=== PATIENT | female | born 1965 | race Caucasian/White ===

== ENCOUNTER 2020-05-03 21:03 | Observation (INO) | payer OTHER ==
[2020-05-03 21:13] LABS: Glucose,Whole Blood 573 mg/dL (75-99)
[2020-05-03] MEDS ORDERED: SODIUM CHLORIDE 0.9% 1,000 ML IV STA (21:18)
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
[2020-05-03 21:46] LABS: Basophils # (A) 0.1 k/uL (0-0.2); Basophils % (A) 1 %; Eosinophils # (A) 0.3 k/uL (0-0.7); Eosinophils % (A) 4 %; HGB 14.5 gm/dL (11.4-16.0); Lymphocytes # (A) 1.5 k/uL (1.0-4.8); Lymphocytes % (A) 22 %; MCH 28.7 pg (25.0-35.0); MCHC 31.6 g/dL (31.0-37.0); MCV 90.7 fL (80.0-100.0); Mean Platelet Volume 8.9; Monocytes # (A) 0.3 k/uL (0-1.0); Monocytes % (A) 5 %; Neutrophils # (A) 4.7 k/uL (1.3-7.7); Neutrophils % (A) 68 %; Platelet Count 216 k/uL (150-450); RBC 5.08 m/uL (3.80-5.40); RDW 12.9 % (11.5-15.5)
[2020-05-03 21:56] LABS: ALT 14 U/L (4-34); AST 15 U/L (14-36); African American GFR (CKD) >90 (>60 ml/min/1.73 sqM); Albumin 4.2 g/dL (3.5-5.0); Alcohol <10 mg/dL; Alkaline Phosphatase 137 U/L (38-126); Anion Gap 8 mmol/L; Blood Urea Nitrogen 17 mg/dL (7-17); Calcium 9.7 mg/dL (8.4-10.2); Carbon Dioxide 28 mmol/L (22-30); Chloride 96 mmol/L (98-107); Non-African American GFR(CKD) >90 (>60 ml/min/1.73 sqM); Potassium 4.8 mmol/L (3.5-5.1); Sodium 132 mmol/L (137-145); Total Bilirubin 0.5 mg/dL (0.2-1.3); Total Protein 6.8 g/dL (6.3-8.2)
[2020-05-03 22:03] LABS: Appearance,Urine Clear (Clear); Bilirubin,Urine Negative (Negative); Blood,Urine Negative (Negative); Color,Urine Colorless; Glucose,Urine (UA) 4+ (Negative); Ketones,Urine 1+ (Negative); Leukocyte Esterase,Urine Negative (Negative); Nitrite,Urine Negative (Negative); PH, Urine 7.5 (5.0-8.0); Protein,Urine Negative (Negative); Specific Gravity,Urine 1.035 (1.001-1.035); Urobilinogen,Urine <2.0 mg/dL (<2.0)
[2020-05-03 22:08] LABS: Glucose 568 mg/dL (74-99)
--- NOTE | 2020-05-03 22:08 | XR ---
EXAMINATION TYPE: XR chest 2V DATE OF EXAM: 05/03/2020 COMPARISON: NONE HISTORY: Weakness TECHNIQUE: FINDINGS: Heart and mediastinum are normal. Lungs are clear. Diaphragm is normal. Bony thorax is inta ct. IMPRESSION: Normal chest.
[2020-05-03 22:21] LABS: Amphetamine Screen,Urine Not Detected (NotDetected); Barbiturate Screen,Urine Not Detected (NotDetected); Benzodiazepines Screen,Urine Not Detected (NotDetected); Cocaine Screen,Urine Not Detected (NotDetected); Methadone Screen, Urine Not Detected (NotDetected); Opiate Screen,Urine Not Detected (NotDetected); Oxycodone Screen, Urine Not Detected (NotDetected); Phencyclidine Screen,Urine Not Detected (NotDetected); Tricyclic Antidepressant,Urine Not Detected (NotDetected); Urn Cannabinoid Scrn Not Detected (NotDetected)
--- NOTE | 2020-05-03 22:37 | CT ---
EXAMINATION TYPE: CT brain wo con DATE OF EXAM: 05/03/2020 COMPARISON: None HISTORY: ams CT DLP: 1096.4 mGycm Automated exposure control for dose reduction was used. Ventricles and sulci appear normal. There is no mass effect nor midline shift. There is no sign of in tracranial hemorrhage. The calvarium is intact. IMPRESSION: Negative unenhanced head CT scan.
[2020-05-03] MEDS ORDERED: SODIUM CHLORIDE 0.9% 1,000 ML IV ONE (22:45)
[2020-05-03] MEDS ORDERED: LORazepam 1 MG TAB PO STA (22:51)
[2020-05-03] MEDS ORDERED: INSULIN REGULAR 100 UNIT in SODIUM CHLORIDE 0.9% 100 ML IV SCH (23:00)
[2020-05-03] MEDS: SODIUM CHLORIDE 0.9% 1,000 ML IV SCH (23:15)
[2020-05-04 00:15] LABS: Glucose,Whole Blood 338 mg/dL (75-99)
[2020-05-04 00:17] LABS: African American GFR (CKD) >90 (>60 ml/min/1.73 sqM); Anion Gap 10 mmol/L; Blood Urea Nitrogen 16 mg/dL (7-17); Carbon Dioxide 24 mmol/L (22-30); Chloride 100 mmol/L (98-107); Glucose 385 mg/dL (74-99); Non-African American GFR(CKD) >90 (>60 ml/min/1.73 sqM); Sodium 134 mmol/L (137-145)
[2020-05-04 00:24] LABS: Phosphorus 3.3 mg/dL (2.5-4.5); Potassium 4.3 mmol/L (3.5-5.1)
[2020-05-04 00:57] LABS: Glucose,Whole Blood 249 mg/dL (75-99)
[2020-05-04] MEDS ORDERED: INSULIN REGULAR 100 UNIT in SODIUM CHLORIDE 0.9% 100 ML IV SCH (01:30)
[2020-05-04] MEDS ORDERED: INSULIN DETEMIR (LEVEMIR) 100 UNIT/ML SYR SQ SCH (01:30)
[2020-05-04 02:08] LABS: Glucose,Whole Blood 265 mg/dL (75-99)
[2020-05-04] MEDS: SODIUM CHLORIDE 0.9% 1,000 ML IV SCH ×2 (02:08→16:36)
[2020-05-04 03:01] LABS: Glucose,Whole Blood 166 mg/dL (75-99)
[2020-05-04 05:23] LABS: Glucose,Whole Blood 145 mg/dL (75-99)
[2020-05-04 05:27] LABS: African American GFR (CKD) >90 (>60 ml/min/1.73 sqM); Anion Gap 3 mmol/L; Blood Urea Nitrogen 17 mg/dL (7-17); Carbon Dioxide 29 mmol/L (22-30); Chloride 106 mmol/L (98-107); Glucose 118 mg/dL (74-99); Non-African American GFR(CKD) >90 (>60 ml/min/1.73 sqM); Phosphorus 3.4 mg/dL (2.5-4.5); Potassium 3.9 mmol/L (3.5-5.1); Sodium 138 mmol/L (137-145)
[2020-05-04] MEDS ORDERED: D5-0.45% NACL WITH KCL 20MEQ/L 1,000 ML IV SCH (06:00)
[2020-05-04 07:02] LABS: Glucose,Whole Blood 132 mg/dL (75-99)
[2020-05-04 09:39] LABS: Glucose,Whole Blood 270 mg/dL (75-99)
[2020-05-04 11:10] LABS: Glucose,Whole Blood 298 mg/dL (75-99)
[2020-05-04] MEDS: INSULIN DETEMIR (LEVEMIR) 100 UNIT/ML SYR SQ SCH (11:13)
[2020-05-04] MEDS: INSULIN ASPART (NovoLOG) 100 UNIT/ML VIAL SQ SCH ×5 (11:14→20:42)
[2020-05-04] MEDS ORDERED: ATIVAN PO PRN (12:20)
[2020-05-04] MEDS ORDERED: HYDROcodone/APAP 5-325MG 1 EACH TAB PO PRN (12:21)
[2020-05-04] MEDS: NICOTINE 14MG/24HR PATCH TRANSDERM SCH (13:06)
[2020-05-04 14:00] VITALS: BMI 26.6
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
--- NOTE | 2020-05-04 14:46 | P.CNNES ---
History of Present Illness Consult date: 05/04/20 Requesting physician: Chuck Granados Reason for Consult: Altered mental status History of Present Illness: Patient is a 55-year-old female came to the hospital by ambulance at 9 PM yesterday. Patient states that she lives in [place]. She has been driving for last 1 week in order to go to [place] to see her father, who had a stroke. She wanted to see him. She has been driving for 1 week, staying in the car. Patient wanted to cross the border to go to [place], which she was told is faster as compared to going through [place]. Patient states that she lost her wallet, perhaps left it in a tray in [facility] and threw it out. Patient was not allowed to be entered to [place], and was taken to police station. Her blood sugar was noted to be very high, therefore was transferred to [facility] for further evaluation. Patient denies any focal symptoms any headache. Patient appears to be in a very poor hygienic condition. Patient's vital signs at the scene was blood pressure 154/80, pulse rate 84, saturation 98% and blood sugar 499. Vital signs on arrival was blood pressure 141/69, pulse rate 80 temperature 98.2. CBC, CMP and UA and urine drug screen are negative. Blood alcohol level negative. Acetone negative. CT head negative. EKG shows normal sinus rhythm. Possible left atrial enlargement. Chest x-ray normal. At present patient denies any headache, numbness tingling focal weakness. She has no complaints. She complains of right knee pain after she fell in the shower sometime ago. Patient denies any alcohol use. She smokes 4 cigarettes per day for last 10 years. She lives with her in [place]. She has a son who is in college. Review of Systems As above, otherwise completely unremarkable. Past Medical History Past Medical History: Diabetes Mellitus Additional Past Medical History / Comment(s): insomnia History of Any Multi-Drug Resistant Organisms: None Reported Past Surgical History: No Surgical Hx Reported Past Anesthesia/Blood Transfusion Reactions: No Reported Reaction Additional Past Anesthesia/Blood Transfusion Reaction / Comment(s): unknown Past Psychological History: Anxiety, Bipolar Smoking Status: Current every day smoker Past Alcohol Use History: None Reported Past Drug Use History: None Reported - Past Family History Son(s) Additional Family Medical History / Comment(s): pt refusing to give info on son Medications and Allergies Home Medications Medication Instructions Recorded Confirmed Type Insulin Aspart [NovoLOG Flexpen] 5 units SQ AC-TID 05/03/20 05/03/20 History Insulin Aspart [NovoLOG Flexpen] See Protocol SQ AC-TID 05/03/20 05/03/20 History Insulin Glargine,Hum.rec.anlog 45 unit SQ HS 05/03/20 05/03/20 History [Lantus Solostar] Multivitamins, Thera [Multivitamin 1 tab PO DAILY 05/03/20 05/03/20 History (formulary)] QUEtiapine FUMARATE [SEROquel] 200 mg PO HS 05/04/20 05/04/20 History traZODone HCL 50 mg PO HS PRN 05/04/20 05/04/20 History Allergies Allergy/AdvReac Type Severity Reaction Status Date / Time Penicillins Allergy Swelling Verified 05/03/20 23:20 Physical Examination - Vital Signs Vital Signs: Vital Signs Temp Pulse Pulse Resp BP BP Pulse Ox 05/04/20 04:19 98.6 F 77 17 122/73 97 05/04/20 00:16 97.8 F 81 16 150/82 99 05/03/20 23:34 98.2 F 80 16 137/74 99 05/03/20 21:04 98.2 F 80 16 141/69 99 Intake and Output 05/03/20 05/04/20 05/04/20 22:59 06:59 14:59 Intake Total 614.8 2.775 Balance 614.8 2.775 Intake: Intake, IV Titration 614.8 2.775 Amount Insulin Regular 100 unit 14.8 2.775 In Sodium Chloride 0.9% 100 ml @ Titrate IV .Q0M [facility] Rx#:[id number] Sodium Chloride 0.9% 1, 600 000 ml @ 100 mls/hr IV . Q10H [facility] Rx#:[id number] Other: Voiding Method Toilet Weight 74.843 kg 74.843 kg On examination patient is a middle aged female, in no acute distress. Patient has poor hygiene, grooming. Patient is a hospital gown. Patient is alert and awake fully oriented. She knows it is April 2020 and that it is and that she is in [place] and name of the current president. Speech and language functions are normal. Attention and concentration fund of knowledge appears adequate. On cranial admission pupils are round and reactive to light, visual branch are full, extraocular muscles are intact with no nystagmus. Face is symmetric, tongue protrudes the midline. Palatal elevation and sensation normal. Hearing and shoulder shrug normal. On muscle strength testing there is no pronator drift and the strength is normal in arms and legs reflexes are diminished and plantars are withdrawal. Sensory touch is equal. No ataxia for [id number] testing. Tone and bulk of muscles normal. Gait deferred. Patient has mild left carotid bruit, S1 and S2 audible. No peripheral edema. Abdomen soft nontender, chest is clear. Results - Laboratory Findings CBC and BMP: 05/03/20 21:22 05/04/20 04:42 Abnormal Lab Findings: Abnormal Labs 05/03/20 05/03/20 05/03/20 21:10 21:22 21:22 Sodium 132 L Chloride 96 L Creatinine Glucose 568 H* POC Glucose (mg/dL) 573 H Alkaline Phosphatase 137 H Urine Glucose (UA) 4+ H Urine Ketones 1+ H 05/03/20 05/04/20 05/04/20 23:57 00:13 00:56 Sodium 134 L Chloride Creatinine 0.45 L Glucose 385 H POC Glucose (mg/dL) 338 H 249 H Alkaline Phosphatase Urine Glucose (UA) Urine Ketones 05/04/20 05/04/20 05/04/20 02:06 03:00 04:42 Sodium Chloride Creatinine Glucose 118 H POC Glucose (mg/dL) 265 H 166 H Alkaline Phosphatase Urine Glucose (UA) Urine Ketones 05/04/20 05/04/20 05/04/20 05:22 07:00 09:19 Sodium Chloride Creatinine Glucose POC Glucose (mg/dL) 145 H 132 H 270 H Alkaline Phosphatase Urine Glucose (UA) Urine Ketones Assessment and Plan Assessment: * Altered mental status, probably due to uncontrolled diabetes. At present her mentation appears normal. * Diabetes, uncontrolled * Left carotid bruit. Plan: * Patient has been seen by psychiatry. Patient diagnosed with bipolar disorder and anxiety disorder. Patient started on Seroquel 50 mg and trazodone 50 mg at bedtime. Watch for daytime drowsiness, as patient is planning to drive to [place]. * Patient's mentation at this time appears clear. * There is a possible left carotid bruit. We will check carotid Doppler. * We will check B12, folate, TSH. * Otherwise no other workup indicated. * Treatment of diabetes as per IM. Addendum: * Carotid Doppler revealed atheromatous plaquing and intimal thickening without significant flow limiting stenosis at the internal carotid arteries. There is some elevation of external carotid artery velocities suggesting moderate narrowing between 50 and 69%. Antegrade flow in both vertebral arteries. * Suggest aspirin 81 mg daily. * TSH is normal. * Neurologically patient is clear for discharge.
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
[2020-05-04 15:22] LABS: Hemoglobin A1C 12.1 % (4.0-6.0)
--- NOTE | 2020-05-04 16:23 | US ---
EXAMINATION TYPE: US carotid duplex BILAT DATE OF EXAM: 05/04/2020 COMPARISON: NONE CLINICAL HISTORY: Left carotid bruit.. left carotid bruit EXAM MEASUREMENTS: RIGHT: Peak Systolic Velocity (PSV) cm/sec ----- Right CCA: 111 ----- Right ICA: 101 ----- Right ECA: 169 ICA/CCA ratio: 0.9 RIGHT: End Diastole cm/sec ----- Right CCA: 7.2 ----- Right ICA: 20.1 ----- Right ECA: 0.0 LEFT: Peak Systolic Velocity (PSV) cm/sec ----- Left CCA: 99.8 ----- Left ICA: 85.7 ----- Left ECA: 147 ICA/CCA ratio: 0.9 LEFT: End Diastole cm/sec ----- Left CCA: 17.4 ----- Left ICA: 27.5 ----- Left ECA: 8.3 VERTEBRALS (direction of flow): Right Vertebral: Antegrade Left Vertebral: Antegrade Rhythm: Normal Mild plaque bilateral bifurcations. No evidence of significant stenosis. Mildly elevated velocities b ilateral ECA's IMPRESSION: 1. Atheromatous plaquing and intimal thickening without significant flow-limiting stenosis at the int ernal carotid arteries. 2. There is some elevation of the external carotid artery velocities suggesting moderate narrowing be tween 50 and 69%. Criteria for Assigning % of Stenosis / Diameter reduction (Estimation based on the indirect measurements of the internal carotid artery velocities (ICA PSV). 1. Normal (no stenosis)=ICA PSV < 125 cm/s: ratio < 2.0: ICA EDV<40 cm/s. 2. Less than 50% stenosis=ICA PSV < 125 cm/s: ratio < 2.0: ICA EDV<40 cm/s. 3. 50 to 69% stenosis=ICA PSV of 125 to 230 cm/s: ration 2.0 ? 4.0: ICA EDV 40-100 cm/s. 4. Greater than 70% stenosis to near occlusion= ICA PSV > 230 cm/s: ratio > 4.0: ICA EDV > 100 cm/s. 5. Near occlusion= ICA PSV velocities may be low or undetectable: variable ratio and ICA EDV. 6. Total occlusion=unable to detect flow.
[2020-05-04 17:03] LABS: Glucose,Whole Blood 236 mg/dL (75-99)
[2020-05-04] MEDS: ASPIRIN 81 MG PO SCH (18:11)
[2020-05-04] MEDS: HEPARIN SODIUM,PORCINE 5,000 UNIT/ML 1 ML VIAL SQ SCH (20:02)
[2020-05-04 20:04] LABS: Glucose,Whole Blood 206 mg/dL (75-99)
[2020-05-04] MEDS ORDERED: traZODone HCL 50 MG TAB PO SCH (21:00)
[2020-05-04] MEDS ORDERED: QUEtiapine 50 MG TAB PO SCH (21:00)
[2020-05-05] MEDS: SODIUM CHLORIDE 0.9% 1,000 ML IV SCH (01:01)
[2020-05-05 05:39] LABS: Basophils # (A) 0.1 k/uL (0-0.2); Basophils % (A) 1 %; Eosinophils # (A) 0.4 k/uL (0-0.7); Eosinophils % (A) 6 %; HCT 43.6 % (34.0-46.0); Lymphocytes % (A) 40 %; MCH 28.9 pg (25.0-35.0); MCHC 32.1 g/dL (31.0-37.0); MCV 89.9 fL (80.0-100.0); Mean Platelet Volume 9.3; Monocytes # (A) 0.4 k/uL (0-1.0); Monocytes % (A) 5 %; Neutrophils # (A) 3.6 k/uL (1.3-7.7); Neutrophils % (A) 48 %; Platelet Count 208 k/uL (150-450); RBC 4.85 m/uL (3.80-5.40); RDW 12.8 % (11.5-15.5); WBC 7.6 k/uL (3.8-10.6)
[2020-05-05 07:06] LABS: Glucose,Whole Blood 269 mg/dL (75-99)
[2020-05-05] MEDS ORDERED: PANTOPRAZOLE 40 MG TABLET PO SCH (07:30)
[2020-05-05] MEDS ORDERED: MULTIVITAMINS, THERA 1 EACH TAB PO SCH (09:00)
[2020-05-05 09:07] LABS: African American GFR (CKD) 113.8 (60.0-200.0); Anion Gap 6.4 mmol/L (4.00-12.00); Calcium 9.1 mg/dL (8.7-10.3); Carbon Dioxide 25.6 mmol/L (21.6-31.8); Non-African American GFR(CKD) 98.2 (60.0-200.0)
[2020-05-05] MEDS: INSULIN ASPART (NovoLOG) 100 UNIT/ML VIAL SQ SCH ×4 (09:58→14:13)
[2020-05-05] MEDS: INSULIN DETEMIR (LEVEMIR) 100 UNIT/ML SYR SQ SCH (09:59)
[2020-05-05] MEDS: HEPARIN SODIUM,PORCINE 5,000 UNIT/ML 1 ML VIAL SQ SCH (10:00)
[2020-05-05] MEDS: ASPIRIN 81 MG PO SCH (10:00)
[2020-05-05] MEDS: NICOTINE 14MG/24HR PATCH TRANSDERM SCH (10:01)
[2020-05-05 12:22] LABS: Glucose,Whole Blood 227 mg/dL (75-99)
[2020-05-05 13:00] VITALS: BP 132/80; PULSE 71; RESP 18; TEMP 98.3
== END 2020-05-05 14:38 ==
LOC: EC 21:03 → 5NMEDONC 22:46 → 6NMEDSUR 23:15
PROVIDERS: ADMIT Hospitalist; ATTEND Hospitalist
DX: E11.65 Type 2 diabetes mellitus with hyperglycemia (principal); E11.00 Type 2 diabetes mellitus with hyperosmolarity without nonketotic hyperglycemic-hyperosmolar coma (NKHHC); G93.41 Metabolic encephalopathy; F41.9 Anxiety disorder, unspecified; F31.9 Bipolar disorder, unspecified; E87.1 Hypo-osmolality and hyponatremia; G47.00 Insomnia, unspecified; M25.561 Pain in right knee; F17.210 Nicotine dependence, cigarettes, uncomplicated; I45.19 Other right bundle-branch block; R09.89 Other specified symptoms and signs involving the circulatory and respiratory systems; I65.23 Occlusion and stenosis of bilateral carotid arteries; Z79.4 Long term (current) use of insulin; Z79.899 Other long term (current) drug therapy; Z88.0 Allergy status to penicillin; Z91.5 Personal history of self-harm; Z91.410 Personal history of adult physical and sexual abuse
CPT/HCPCS: 96361 ×2; 96372 ×2; 96360; 99285; 36415; 93005; 80051 ×2; 80053; 80048; 84443; 82607; 82565 ×2; 82746; 82009; 84100 ×2; 82947 ×2; 84520 ×2; 85025 ×2; 81003; 80306; 80320; 83036; 71046; 93880; 70450; G0378 ×3; J1644 ×2

== ENCOUNTER 2020-12-14 16:19 | Inpatient (IN) | payer OTHER ==
--- NOTE | 2020-12-14 17:42 | ED ---
Psych HPI - General Chief Complaint: Psychiatric Symptoms Stated Complaint: suicidal Time Seen by Provider: 12/14/20 16:30 Source: patient, EMS Mode of arrival: EMS - History of Present Illness Initial Comments: 55-year-old female presents to emergency department with a chief complaint of for psychiatric evaluation. Patient reports she has been feeling suicidal since earlier today. Patient reports history of suicidal thoughts but distention plan with either cutting her wrists or using a gun but she does not have access to either overdose. Patient reports currently she is living with her friend after moving to [place]. Patient reports she used to live with her out in [place]. She denies any homicidal thoughts or ideations. Has no other complaints - Related Data Home Medications Medication Instructions Recorded Confirmed Insulin Aspart [NovoLOG Flexpen] 5 units SQ AC-TID 05/03/20 05/03/20 Insulin Aspart [NovoLOG Flexpen] See Protocol SQ AC-TID 05/03/20 05/03/20 Insulin Glargine,Hum.rec.anlog 45 unit SQ HS 05/03/20 05/03/20 [Lantus Solostar] Multivitamins, Thera [Multivitamin 1 tab PO DAILY 05/03/20 05/03/20 (formulary)] QUEtiapine FUMARATE [SEROquel] 200 mg PO HS 05/04/20 05/04/20 traZODone HCL 50 mg PO HS PRN 05/04/20 05/04/20 Previous Rx's Medication Instructions Recorded Aspirin 81 mg PO DAILY chew 05/05/20 QUEtiapine [SEROquel] 50 mg PO HS #30 tab 05/05/20 traZODone HCL [Desyrel] 50 mg PO HS #30 tab 05/05/20 Allergies Allergy/AdvReac Type Severity Reaction Status Date / Time Penicillins Allergy Swelling Verified 05/03/20 23:20 Review of Systems ROS Statement: Those systems with pertinent positive or pertinent negative responses have been documented in the HPI. ROS Other: All systems not noted in ROS Statement are negative. Past Medical History Past Medical History: Diabetes Mellitus Additional Past Medical History / Comment(s): insomnia History of Any Multi-Drug Resistant Organisms: None Reported Past Surgical History: No Surgical Hx Reported Past Anesthesia/Blood Transfusion Reactions: No Reported Reaction Additional Past Anesthesia/Blood Transfusion Reaction / Comment(s): unknown Past Psychological History: Anxiety, Bipolar Smoking Status: Current every day smoker Past Alcohol Use History: None Reported Past Drug Use History: None Reported - Past Family History Son(s) Additional Family Medical History / Comment(s): pt refusing to give info on son General Exam Limitations: no limitations General appearance: alert, in no apparent distress Head exam: Present: atraumatic, normocephalic, normal inspection Eye exam: Present: normal appearance, PERRL, EOMI Pupils: Present: normal accommodation ENT exam: Present: normal exam, normal oropharynx, mucous membranes moist Neck exam: Present: normal inspection, full ROM. Absent: tenderness Respiratory exam: Present: normal lung sounds bilaterally. Absent: respiratory distress Cardiovascular Exam: Present: regular rate, normal rhythm, normal heart sounds Extremities exam: Present: normal inspection, full ROM. Absent: tenderness Back exam: Present: normal inspection, full ROM. Absent: tenderness Neurological exam: Present: alert, oriented X3, normal gait Psychiatric exam: Present: normal mood, flat affect, suicidal ideation Skin exam: Present: warm, dry, intact, normal color Course Vital Signs 12/14/20 16:26 Temperature 97.9 F Pulse Rate 100 Respiratory 18 Rate Blood Pressure 167/66 O2 Sat by Pulse 98 Oximetry Medical Decision Making - Medical Decision Making 55-year-old female presents to emergency department for psychiatric evaluation. Urine drug screen is negative. Not . EPS evaluated patient and will admit for further psychiatric management. Case discussed with Dr. Granados. - Lab Data Lab Results 12/14/20 12/14/20 Range/Units 16:44 16:44 Urine HCG, Qual Not Detected (Not Detectd) Urine Opiates Screen Not Detected (NotDetected) Ur Oxycodone Screen Not Detected (NotDetected) Urine Methadone Screen Not Detected (NotDetected) Ur Propoxyphene Screen Not Detected (NotDetected) Ur Barbiturates Screen Not Detected (NotDetected) U Tricyclic Antidepress Not Detected (NotDetected) Ur Phencyclidine Scrn Not Detected (NotDetected) Ur Amphetamines Screen Not Detected (NotDetected) U Methamphetamines Scrn Not Detected (NotDetected) U Benzodiazepines Scrn Not Detected (NotDetected) Urine Cocaine Screen Not Detected (NotDetected) U Marijuana (THC) Screen Not Detected (NotDetected) Disposition Clinical Impression: Adjustment reaction of adult life Disposition: ADMITTED IP TO THIS HOSP Condition: Good Is patient prescribed a controlled substance at d/c from ED?: No Referrals: None,Stated [Primary Care Provider] - 1-2 days Time of Disposition: 18:20
[2020-12-14 18:15] LABS: Amphetamine Screen,Urine Not Detected (NotDetected); Barbiturate Screen,Urine Not Detected (NotDetected); Benzodiazepines Screen,Urine Not Detected (NotDetected); Cocaine Screen,Urine Not Detected (NotDetected); Methadone Screen, Urine Not Detected (NotDetected); Opiate Screen,Urine Not Detected (NotDetected); Oxycodone Screen, Urine Not Detected (NotDetected); Phencyclidine Screen,Urine Not Detected (NotDetected); Tricyclic Antidepressant,Urine Not Detected (NotDetected); Urn Cannabinoid Scrn Not Detected (NotDetected)
[2020-12-14] MEDS ORDERED: traZODone HCL 50 MG TAB PO ONE (21:30)
[2020-12-14] MEDS ORDERED: OLANZapine 7.5 MG TAB PO STA (21:43)
[2020-12-15] MEDS ORDERED: INSULIN REGULAR 100 UNIT/ML VIAL SQ STA (03:10)
[2020-12-15 03:12] LABS: Glucose,Whole Blood 382 mg/dL (75-99)
[2020-12-15] MEDS: MELATONIN 3 MG TABLET PO SCH ×3 (04:41→21:14)
[2020-12-15] MEDS ORDERED: OLANZapine 7.5 MG TAB PO SCH ×2 (09:00→21:00)
[2020-12-15] MEDS ORDERED: MAG HYDROX/AL HYDROX/SIMETH 30 ML CUP PO PRN (10:42)
[2020-12-15] MEDS ORDERED: LORazepam 1 MG TAB PO PRN (10:42)
[2020-12-15] MEDS ORDERED: HALOPERIDOL LACTATE 5 MG/ML 1 ML VIAL IM PRN (10:46)
[2020-12-15 11:19] LABS: Glucose,Whole Blood 505 mg/dL (75-99)
[2020-12-15] MEDS ORDERED: INSULIN ASPART (NovoLOG) 100 UNIT/ML VIAL SQ ONE (11:21)
[2020-12-15 12:42] LABS: Glucose,Whole Blood 394 mg/dL (75-99)
[2020-12-15] MEDS: INSULIN ASPART (NovoLOG) 100 UNIT/ML VIAL SQ SCH ×5 (12:48→21:12)
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
[2020-12-15] MEDS: DULoxetine HCL 30 MG CAPSULE.DR PO SCH (13:01)
[2020-12-15] MEDS: GABAPENTIN 300 MG CAP PO SCH ×2 (13:02→21:17)
[2020-12-15 14:54] LABS: Glucose,Whole Blood 199 mg/dL (75-99)
[2020-12-15] MEDS ORDERED: LORazepam 2 MG/ML INJ IM PRN (15:54)
[2020-12-15] MEDS ORDERED: LORazepam 2 MG/ML INJ IM SCH (16:00)
[2020-12-15 17:36] LABS: Glucose,Whole Blood 99 mg/dL (75-99)
[2020-12-15] MEDS: INSULIN DETEMIR (LEVEMIR) 100 UNIT/ML SYR SQ SCH (21:09)
[2020-12-15 21:10] LABS: Glucose,Whole Blood 391 mg/dL (75-99)
[2020-12-15] MEDS: ZIPRASIDONE 20 MG CAP PO SCH (21:14)
[2020-12-16 06:51] LABS: Basophils # (A) 0.1 k/uL (0-0.2); Basophils % (A) 1 %; Eosinophils # (A) 0.3 k/uL (0-0.7); Eosinophils % (A) 5 %; HCT 40.7 % (34.0-46.0); HGB 13.6 gm/dL (11.4-16.0); Lymphocytes # (A) 2.5 k/uL (1.0-4.8); Lymphocytes % (A) 37 %; MCH 28.3 pg (25.0-35.0); MCHC 33.3 g/dL (31.0-37.0); MCV 84.8 fL (80.0-100.0); Mean Platelet Volume 7.8; Monocytes # (A) 0.4 k/uL (0-1.0); Monocytes % (A) 6 %; Neutrophils # (A) 3.4 k/uL (1.3-7.7); Neutrophils % (A) 50 %; Platelet Count 244 k/uL (150-450); RDW 12.9 % (11.5-15.5); WBC 6.8 k/uL (3.8-10.6)
[2020-12-16 07:07] LABS: ALT 38 U/L (4-34); AST 27 U/L (14-36); African American GFR (CKD) >90 (>60 ml/min/1.73 sqM); Albumin 3.7 g/dL (3.5-5.0); Alkaline Phosphatase 105 U/L (38-126); Anion Gap 6 mmol/L; Blood Urea Nitrogen 25 mg/dL (7-17); Calcium 9.6 mg/dL (8.4-10.2); Carbon Dioxide 30 mmol/L (22-30); Chloride 104 mmol/L (98-107); Glucose 71 mg/dL (74-99); Non-African American GFR(CKD) >90 (>60 ml/min/1.73 sqM); Potassium 4.1 mmol/L (3.5-5.1); Sodium 140 mmol/L (137-145); Total Bilirubin 0.4 mg/dL (0.2-1.3); Total Protein 6.5 g/dL (6.3-8.2)
[2020-12-16 07:28] LABS: Cholesterol 139 mg/dL (<200); HDL Cholesterol 44 mg/dL (40-60); LDL Cholesterol,Calculated 73 mg/dL (0-99); Triglycerides 109 mg/dL (<150)
[2020-12-16 07:43] LABS: Glucose,Whole Blood 77 mg/dL (75-99)
[2020-12-16] MEDS: INSULIN ASPART (NovoLOG) 100 UNIT/ML VIAL SQ SCH ×7 (07:45→21:11)
[2020-12-16] MEDS: NICOTINE 14MG/24HR PATCH TRANSDERM SCH (08:54)
[2020-12-16] MEDS: ZIPRASIDONE 20 MG CAP PO SCH (08:54)
[2020-12-16] MEDS: DULoxetine HCL 30 MG CAPSULE.DR PO SCH (08:54)
[2020-12-16] MEDS: GABAPENTIN 300 MG CAP PO SCH ×2 (08:55→21:14)
[2020-12-16 12:48] LABS: Glucose,Whole Blood 236 mg/dL (75-99)
--- NOTE | 2020-12-16 14:04 | P.HPMEDMHU ---
History of Present Illness H&P Date: 12/16/20 Chief Complaint: depression Patient is a 55-year-old female with a history of insulin-dependent diabetes mellitus, tobacco abuse, and bipolar disorder who was hospitalized at the mental health unit for bipolar disorder with depression. Patient seen and examined. She reports that she left [place] about a week ago. She reports that her insulin is sliding scale with meals and long-acting at night. She sees both a family doctor and diabetic specialist 1 able to in [place]. She says she takes her insulin as prescribed. She reports that her blood sugars range from [address] up to 500. She reports that they dropped suddenly. She denies any recent cough, cold, fever, flu, nausea, vomiting, or diarrhea. She continues to smoke one half pack daily. She reports that she has been diabetic for the last 20 years. She denies any known eye or renal disease. Pertinent positives and negatives as discussed in HPI, a complete review of systems was performed and all other systems are negative. General: non toxic, no distress, appears at stated age Derm: warm, dry Head: atraumatic, normocephalic, symmetric Eyes: EOMI, no lid lag, anicteric sclera, pupils equal round reactive to light ENT: Nose and ears atraumatic, no thrush, no pharyngeal erythema Neck: No thyromegaly, no cervical lymphadenopathy, trachea midline, supple Mouth: no lip lesion, mucus membranes moist Cardiovascular: S1S2 reg, no murmur, positive posterior tibial pulse bilateral, no edema, capillary refill less than 2 seconds Lungs: clear to ascultation bilateral, no ronchi, no rales, no wheeze, no accessory muscle use Abdominal: soft, nontender to palpation, no guarding, no appreciable organomegaly, normal bowel sounds Ext: no gross muscle atrophy, muscle strength muscle strength 5 out of 5 in all 4 extremities, no contractures Neuro: CN II-XI grossly intact, light touch intact all 4 extremities, finger to nose within normal limits, Psych: Alert, oriented, flat affect, slow thinking Diabetes mellitus type 2, insulin requiring -Continue with sliding scale, decrease fixed dose to 2 units with each meal, continue with long-acting -Continue to follow blood sugars with meals and check at 2 AM 4 nights -Follow blood pressures Bipolar disorder with depression -Your psych management Thank you for allowing us to participate in the care of this pleasant patient. Do not hesitate to contact us with questions. Someone can be reached from the [facility] hospitalist group all hours of the day at [phone] or via [employer]. Past Medical History Past Medical History: Diabetes Mellitus Additional Past Medical History / Comment(s): insomnia History of Any Multi-Drug Resistant Organisms: None Reported Past Surgical History: No Surgical Hx Reported Past Anesthesia/Blood Transfusion Reactions: No Reported Reaction Additional Past Anesthesia/Blood Transfusion Reaction / Comment(s): unknown Past Psychological History: Anxiety, Bipolar Smoking Status: Current every day smoker Past Alcohol Use History: None Reported Past Drug Use History: None Reported - Past Family History Son(s) Additional Family Medical History / Comment(s): pt refusing to give info on son Medications and Allergies Home Medications Medication Instructions Recorded Confirmed Type Insulin Aspart [NovoLOG Flexpen] 5 units SQ AC-TID 05/03/20 12/15/20 History Insulin Aspart [NovoLOG Flexpen] See Protocol SQ AC-TID 05/03/20 12/15/20 History Insulin Glargine,Hum.rec.anlog 45 unit SQ HS 05/03/20 12/15/20 History [Lantus Solostar] Allergies Allergy/AdvReac Type Severity Reaction Status Date / Time Penicillins Allergy Swelling Verified 12/15/20 15:45 Physical Exam Osteopathic Statement: *. No significant issues noted on an osteopathic structural exam other than those noted in the History and Physical/Consult. Vitals: Vital Signs Temp Pulse Resp BP 12/16/20 08:57 100 20 106/52 12/15/20 17:46 97.2 F L 12/15/20 15:55 107 H 20 104/53 12/15/20 15:31 98.1 F 79 16 Intake and Output 12/15/20 12/16/20 12/16/20 22:59 06:59 14:59 Other: Weight 79.379 kg Cranial Nerve Examination - Cranial Nerves Cranial Nerve II- Optic: Intact Cranial Nerve III- Oculomotor: Intact Cranial Nerve IV- Trochlear: Intact Cranial Nerve V- Trigeminal: Intact Cranial Nerve - Abducens: Intact Cranial Nerve VII- Facial: Intact Cranial Nerve VIII- Auditory: Intact Cranial Nerve IX- Glossopharyngeal: Intact Cranial Nerve X- Vagus: Intact Cranial Nerve XI- Accessory: Intact Cranial Nerve XII- Hypoglossal: Intact Results CBC & Chem 7: 12/16/20 06:17 12/16/20 06:17 Labs: Abnormal Lab Results - Last 24 Hours (Table) 12/15/20 12/15/20 12/16/20 Range/Units 14:52 21:08 06:17 BUN 25 H (7-17) mg/dL Glucose 71 L (74-99) mg/dL POC Glucose (mg/dL) 199 H 391 H (75-99) mg/dL ALT 38 H (4-34) U/L 12/16/20 Range/Units 12:47 BUN (7-17) mg/dL Glucose (74-99) mg/dL POC Glucose (mg/dL) 236 H (75-99) mg/dL ALT (4-34) U/L Thrombosis Risk Factor Assmnt - Choose All That Apply Each Factor Represents 1 point: Obesity (BMI >25) Thrombosis Risk Factor Assessment Total Risk Factor Score: 1 Thrombosis Risk Factor Assessment Level: Low Risk
[2020-12-16 17:48] LABS: Glucose,Whole Blood 161 mg/dL (75-99)
[2020-12-16 20:54] LABS: Glucose,Whole Blood 242 mg/dL (75-99)
[2020-12-16] MEDS: INSULIN DETEMIR (LEVEMIR) 100 UNIT/ML SYR SQ SCH (21:10)
[2020-12-16] MEDS: ZIPRASIDONE 40 MG CAP PO SCH (21:14)
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
[2020-12-17 07:41] LABS: Glucose,Whole Blood 73 mg/dL (75-99)
[2020-12-17] MEDS: INSULIN ASPART (NovoLOG) 100 UNIT/ML VIAL SQ SCH ×7 (07:46→20:17)
[2020-12-17] MEDS: ZIPRASIDONE 40 MG CAP PO SCH ×2 (08:44→20:18)
[2020-12-17] MEDS: NICOTINE 14MG/24HR PATCH TRANSDERM SCH (08:44)
[2020-12-17] MEDS: DULoxetine HCL 60 MG CAPSULE.DR PO SCH (08:44)
[2020-12-17] MEDS: GABAPENTIN 300 MG CAP PO SCH ×2 (08:45→20:18)
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
[2020-12-17 12:46] LABS: Glucose,Whole Blood 134 mg/dL (75-99)
[2020-12-17 17:39] LABS: Glucose,Whole Blood 160 mg/dL (75-99)
[2020-12-17 20:13] LABS: Glucose,Whole Blood 342 mg/dL (75-99)
[2020-12-17] MEDS: MELATONIN 3 MG TABLET PO SCH (20:18)
[2020-12-17] MEDS: INSULIN DETEMIR (LEVEMIR) 100 UNIT/ML SYR SQ SCH (20:19)
[2020-12-18 07:56] LABS: Glucose,Whole Blood 106 mg/dL (75-99)
[2020-12-18] MEDS: INSULIN ASPART (NovoLOG) 100 UNIT/ML VIAL SQ SCH ×7 (07:56→20:04)
[2020-12-18] MEDS: NICOTINE 14MG/24HR PATCH TRANSDERM SCH (07:58)
[2020-12-18] MEDS: DULoxetine HCL 60 MG CAPSULE.DR PO SCH (07:58)
[2020-12-18] MEDS: ZIPRASIDONE 40 MG CAP PO SCH (08:00)
[2020-12-18] MEDS: GABAPENTIN 300 MG CAP PO SCH ×2 (08:00→20:04)
[2020-12-18 13:11] LABS: Glucose,Whole Blood 245 mg/dL (75-99)
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
[2020-12-18 17:38] LABS: Glucose,Whole Blood 192 mg/dL (75-99)
[2020-12-18] MEDS: ZIPRASIDONE 60 MG CAP PO SCH (20:03)
[2020-12-18] MEDS: MELATONIN 3 MG TABLET PO SCH (20:03)
[2020-12-18 20:05] LABS: Glucose,Whole Blood 287 mg/dL (75-99)
[2020-12-18] MEDS: INSULIN DETEMIR (LEVEMIR) 100 UNIT/ML SYR SQ SCH (20:40)
[2020-12-19 07:55] LABS: Glucose,Whole Blood 83 mg/dL (75-99)
[2020-12-19] MEDS: INSULIN ASPART (NovoLOG) 100 UNIT/ML VIAL SQ SCH ×7 (07:55→21:07)
[2020-12-19] MEDS: NICOTINE 14MG/24HR PATCH TRANSDERM SCH (08:55)
[2020-12-19] MEDS: DULoxetine HCL 60 MG CAPSULE.DR PO SCH (08:55)
[2020-12-19] MEDS: GABAPENTIN 300 MG CAP PO SCH ×2 (08:55→20:11)
[2020-12-19] MEDS: ASPIRIN-ACET-CAFF 250-250-65MG 1 EACH TAB PO PRN (12:32)
[2020-12-19 12:42] LABS: Glucose,Whole Blood 184 mg/dL (75-99)
--- NOTE | 2020-12-19 12:43 | P.PN ---
<Manny Tomas - Last Filed: 12/19/20 12:25> Subjective Progress Note Date: 12/19/20 Hospital course: Patient is a 55-year-old female with a past medical history including insulin- dependent diabetes mellitus type 2, neuropathy, tobacco dependence, anxiety, depression, and bipolar disorder. She is currently hospitalized in the inpatient mental health unit under psychiatry team for reports of increased depression with suicidal ideations and we have been consulted for continued medical management. Patient reports that she continues to feel depressed, but states feeling slightly better today as she has been able to list 39 reasons that she is grateful for being here in the hospital. Patient denies having a headache, lightheadedness, dizziness, changes in her vision or hearing, chest pain or palpitations, shortness of breath, abdominal pain, nausea, vomiting, or experiencing any increased numbness/tingling/weakness in her extremities. Patient denies having any tactile, auditory, or visual hallucinations. She denies having any further needs or complaints at this time. Physical exam: General: non toxic, no distress, appears at stated age Derm: warm, dry Head: atraumatic, normocephalic, symmetric Eyes: EOMI, no lid lag, anicteric sclera Mouth: no lip lesion, mucus membranes moist Cardiovascular: S1S2 reg, no murmur, positive posterior tibial pulse bilateral, Lungs: CTA bilateral, no rhonchi, no rales , no accessory muscle use Abdominal: soft, nontender to palpation, no guarding, no appreciable organomegaly Ext: no gross muscle atrophy, no edema, no contractures Neuro: CN II-XI grossly intact, no focal neuro deficits Psych: Alert, oriented, flat affect. Calm, cooperative, and slowed response. Plan of care: Insulin-dependent diabetes mellitus type 2 -Morning blood glucose 83. Hemoglobin A1c 8.0%. -Continue glycemic protocol with NovoLog sliding scale along with fixed dose of 2 units of NovoLog 3 times daily with each meal. -Long-acting insulin with Levemir 45 units nightly. Nicotine dependence -Continue to educate and encourage patient on the benefits of smoking cessation and the risks of continued use. -Nicotine patch. Neuropathy -Continue daily medication management with Neurontin 300 mg twice daily. Insomnia -Continue melatonin 6 mg nightly. -Psychiatry added Geodon 60 mg nightly to assist. Anxiety, depression, and bipolar disorder currently expressing suicidal ideations without a plan -Suicide precautions. -Primary admitting psychiatry team to manage. Thank you for allowing us to participate in the care of this pleasant patient. Do not hesitate to contact us with questions. We will follow on an as-needed basis. RN to notify provider with further needs. Someone can be reached from the [facility] hospitalist group all hours of the day at [phone] or via perfect serve. Objective - Vital Signs Vital signs: Vital Signs Temp 97.5 F L 12/19/20 09:00 Pulse 65 12/19/20 09:00 Resp 14 12/19/20 09:00 BP 106/55 12/19/20 09:00 Pulse Ox 98 12/19/20 09:00 - Labs CBC & Chem 7: 12/16/20 06:17 12/16/20 06:17 Labs: Abnormal Lab Results - Last 24 Hours (Table) 12/18/20 12/18/20 12/18/20 Range/Units 13:09 17:36 20:01 POC Glucose (mg/dL) 245 H 192 H 287 H (75-99) mg/dL <Obdulia Crawley A - Last Filed: 12/19/20 19:24> Subjective I discussed the care with Manny Tomas NP and reviewed the findings and plan as documented in the note above. I did not physically speak with or examine the patient on this date. Objective - Vital Signs Vital signs: Vital Signs Temp 97.5 F L 12/19/20 09:00 Pulse 65 12/19/20 09:00 Resp 14 12/19/20 09:00 BP 106/55 12/19/20 09:00 Pulse Ox 98 12/19/20 09:00 - Labs CBC & Chem 7: 12/16/20 06:17 12/16/20 06:17 Labs: Abnormal Lab Results - Last 24 Hours (Table) 12/18/20 12/19/20 12/19/20 Range/Units 20:01 12:41 17:37 POC Glucose (mg/dL) 287 H 184 H 316 H (75-99) mg/dL 12/19/20 Range/Units 17:39 POC Glucose (mg/dL) 284 H (75-99) mg/dL
--- NOTE | 2020-12-19 13:11 | PN ---
PROGRESS NOTE DATE OF SERVICE: 12/19/2020. CHIEF COMPLAINT: The patient was admitted due to depression with suicidal thinking. She had thoughts of cutting herself or using a gun. She reports significant traumatic events. INTERVAL HISTORY: Patient has been doing fair. She had a quiet day yesterday, mostly she isolated to her room. She did attend two groups in the afternoon, other than that mostly she kept to herself. She does not interact too much with others. She slept well last night. Today she has been in her room. This morning she complains of a migraine headache. She said she talked to her friend, Ashley, ([phone]). She said Ashley has set her up to be able to reside with a friend of Ashley's name Mary ([phone]). The patient said that she was comfortable with this plan, though it was not really clear that she had much future orientation or expectations about this potential living situation. The patient stated that she has been calling her , though he has not answered. It is noted that the patient has made statements about having auditory hallucinations. She apparently had stated to staff at different points that she had hallucinations with command hallucinations. When I talked to her about this, she said that hallucinations are quieter and that when she is up and does things such as goes to groups, she does not have voices though if she lays down, she starts having the voices come on. She was vague about the nature of the voices. She did state that the voices seem to be less overall. She tolerates her psychotropic medications. MENTAL STATUS: Patient walked in a very slow measured gait. She has somewhat disheveled appearance. Her hair was uncombed. She looked down most of the time and had a slumped posture. She sat. She responded to questions with 1 or 2 word responses. She was not spontaneous or interactive. Her affect was flat. Her mood somewhat down. It was difficult to assess how depressed or distressed she might be. She continues to report some auditory hallucinations, though the nature of these are not clear. She did not voicing any thoughts of harm to self or others. She was oriented to circumstances and surroundings. ASSESSMENT: I will continue the current diagnosis and treatment plan. I will continue psychotropic medications the same including Cymbalta 60 mg a day, Geodon 60 mg a day as her 2 primary psychotropics. I discussed discharge planning issues. Social Work will make an effort to contact both Ashley and Mary to sort out the potential living situation. We will focus on stabilization and discharge planning. MMBROOKEL / IJN: [id number] /
[2020-12-19 17:38] LABS: Glucose,Whole Blood 316 mg/dL (75-99)
[2020-12-19 17:40] LABS: Glucose,Whole Blood 284 mg/dL (75-99)
[2020-12-19] MEDS: ZIPRASIDONE 60 MG CAP PO SCH (18:31)
[2020-12-19 20:09] LABS: Glucose,Whole Blood 337 mg/dL (75-99)
[2020-12-19] MEDS: MELATONIN 3 MG TABLET PO SCH (20:11)
[2020-12-19] MEDS: INSULIN DETEMIR (LEVEMIR) 100 UNIT/ML SYR SQ SCH (21:07)
[2020-12-19 22:26] LABS: Appearance,Urine Cloudy (Clear); Bilirubin,Urine Negative (Negative); Blood,Urine Negative (Negative); Color,Urine Light Yellow; Glucose,Urine (UA) 4+ (Negative); Hyaline Casts,Urine 1 /lpf (0-2); Ketones,Urine Negative (Negative); Leukocyte Esterase,Urine Moderate (Negative); Nitrite,Urine Negative (Negative); PH, Urine 5.5 (5.0-8.0); Protein,Urine Negative (Negative); RBC,Urine 1 /hpf (0-5); Specific Gravity,Urine 1.018 (1.001-1.035); Squamous Epithelial Cell,Urine 3 /hpf (0-4); Urobilinogen,Urine <2.0 mg/dL (<2.0); WBC,Urine 5 /hpf (0-5)
[2020-12-20 07:39] LABS: Glucose,Whole Blood 179 mg/dL (75-99)
[2020-12-20] MEDS: INSULIN ASPART (NovoLOG) 100 UNIT/ML VIAL SQ SCH ×7 (07:41→20:14)
[2020-12-20] MEDS: DULoxetine HCL 60 MG CAPSULE.DR PO SCH (08:35)
[2020-12-20] MEDS: GABAPENTIN 300 MG CAP PO SCH ×2 (08:35→20:15)
[2020-12-20] MEDS: NICOTINE 14MG/24HR PATCH TRANSDERM SCH (08:35)
[2020-12-20 10:07] LABS: Urine Alcohol Negative (Negative); Urine Barbiturate Negative (Negative); Urine Cocaine Negative (Negative); Urine Methadone Negative (Negative); Urine Opiates Negative (Negative); Urine Phencyclidine Negative (Negative)
[2020-12-20 12:46] LABS: Glucose,Whole Blood 247 mg/dL (75-99)
[2020-12-20 17:44] LABS: Glucose,Whole Blood 122 mg/dL (75-99)
[2020-12-20] MEDS: ZIPRASIDONE 60 MG CAP PO SCH (18:25)
[2020-12-20 20:01] LABS: Glucose,Whole Blood 211 mg/dL (75-99)
--- NOTE | 2020-12-20 20:05 | PN ---
PROGRESS NOTE DATE OF SERVICE: 12/20/2020 CHIEF COMPLAINT: The patient was admitted due to depression with suicidal thinking. She had thoughts of cutting herself or using a gun. She reports significant traumatic events. INTERVAL HISTORY: The patient has been doing fair. She continues to be moderately withdrawn in her manner. She had a quiet day yesterday. She was slow-moving in the morning time, though as the day went on she seemed to be a little bit more outgoing. She did attend two groups in the afternoon yesterday. She was working on some discharge planning and had been coordinating with a friend in hopes of setting up some housing in the [place] area. She slept well last night. Today she has been up. She seems a little more active. She is much more neatly dressed and groomed. She walks with a little more normal pace. Today when she came into the office she said she had a confession to make and stated that she is alcoholic. She said she did not want to acknowledge that and had been hiding that fact, though now is recognizing that she likely needs to be in a treatment program. She said that she is willing to go into an inpatient treatment program initially. She also said that the options that she had for housing with the person named Mary had fallen through, so that would would not be a possibility for her for discharge anyway. She has been running elevated blood sugars, though her numbers do seem to be coming down. She has maintained stable vital signs without indications of any withdrawal issues. Vital signs today at 0748 included BP 105/58, pulse 95 and regular, temperature 97, respirations 15, oxygen saturation 98. The patient tolerates her psychotropic medications. MENTAL STATUS EXAMINATION: Patient, as noted above, moved with a little more fluidity. She had a better posture. She gave better eye contact than in previous interviews. She answered questions with brief responses. Her thoughts were clear. She was spontaneous. Her affect was anxious, her mood depressed. She was moderately distressed. She was reporting only minimal effects of hallucinations. She voiced no thoughts of harm. Cognition was clear. ASSESSMENT: I will continue the current diagnosis and treatment plan. I will continue psychotropic medications the same. We discussed options in regard to inpatient substance abuse treatment. The patient will be given numbers and will work with Social Work towards a possible referral. We will focus on stabilization and discharge planning. MMODL / IJN: [id number] /
[2020-12-20] MEDS: INSULIN DETEMIR (LEVEMIR) 100 UNIT/ML SYR SQ SCH (20:15)
[2020-12-20] MEDS: MELATONIN 3 MG TABLET PO SCH (20:15)
[2020-12-21] MEDS: INSULIN ASPART (NovoLOG) 100 UNIT/ML VIAL SQ SCH ×7 (07:50→19:49)
[2020-12-21 07:53] LABS: Glucose,Whole Blood 128 mg/dL (75-99)
[2020-12-21] MEDS: GABAPENTIN 300 MG CAP PO SCH ×2 (08:29→19:47)
[2020-12-21] MEDS: DULoxetine HCL 60 MG CAPSULE.DR PO SCH (08:29)
[2020-12-21] MEDS: NICOTINE 14MG/24HR PATCH TRANSDERM SCH (08:30)
--- NOTE | 2020-12-21 10:21 | P.PN ---
Subjective Progress Note Date: 12/21/20 Feels okay, no chest pain no abdominal pain, no nausea no vomiting no dizziness no shortness of breath. Blood glucose appears to be well-controlled. Objective - Vital Signs Vital signs: Vital Signs Temp 97.0 F L 12/21/20 08:31 Pulse 90 12/21/20 08:31 Resp 20 12/21/20 08:31 BP 105/49 12/21/20 08:31 Pulse Ox 97 12/21/20 08:31 - Exam General: non toxic, no distress Derm: warm, dry Head: atraumatic, normocephalic, symmetric Eyes: EOMI, no lid lag, anicteric sclera Cardiovascular: S1S2 reg, no murmur, positive posterior tibial pulse bilateral, Lungs: CTA bilateral, no rhonchi, no rales , no accessory muscle use Abdominal: soft, nontender to palpation, no guarding Ext: no gross muscle atrophy, no edema, no contractures Neuro: CN II-XI grossly intact, no focal neuro deficits Psych: Alert, oriented, flat affect - Labs CBC & Chem 7: 12/16/20 06:17 12/16/20 06:17 Labs: Abnormal Lab Results - Last 24 Hours (Table) 12/20/20 12/20/20 12/20/20 Range/Units 12:34 17:34 19:59 POC Glucose (mg/dL) 247 H 122 H 211 H (75-99) mg/dL 12/21/20 Range/Units 07:41 POC Glucose (mg/dL) 128 H (75-99) mg/dL Assessment and Plan Plan: Insulin-dependent diabetes mellitus type 2 -Continue glycemic protocol with NovoLog sliding scale along with fixed dose of 2 units of NovoLog 3 times daily with each meal. Blood glucose appears to be controlled. -Long-acting insulin with Levemir 45 units nightly. Nicotine dependence without withdrawal -Nicotine patch. Neuropathy -Continue daily medication management with Neurontin 300 mg twice daily. Insomnia -Continue melatonin 6 mg nightly. -Psychiatry added Geodon 60 mg nightly to assist., Monitor. Anxiety, depression, and bipolar disorder : Management per psychiatry -Suicide precautions.
[2020-12-21 12:54] LABS: Glucose,Whole Blood 242 mg/dL (75-99)
[2020-12-21] MEDS: ATORVASTATIN 20 MG TAB PO SCH (15:27)
[2020-12-21] MEDS: ASPIRIN 81 MG PO SCH (15:27)
--- NOTE | 2020-12-21 15:44 | PN ---
PROGRESS NOTE DATE OF SERVICE: 12/21/2020. CHIEF COMPLAINT: The patient was admitted due to depression with suicidal thinking. She had thoughts of cutting herself or using a gun. She reports significant traumatic events. INTERVAL HISTORY: Overall, the patient has been doing fair. She seems to be making slow progress. It was noted that yesterday she acknowledged both to me as well as in groups that she struggles with alcohol dependence and is seeking out a treatment program. She made contact yesterday with [facility] with an anticipated evaluation on next Friday. She slept fairly well last night. Today she has been up. She attended groups today. She has been out in the day area. She tends to walk around in a slow manner. She will interact a little with others, though mostly she seems to keep to herself and not pay too much attention to things going on around her. She asked about medications indicating that typically she takes a baby aspirin a day as well as Lipitor. She tolerates her psychotropic medications. MENTAL STATUS: Patient sat without restlessness. Eye contact was fair. Psychomotor activity was slowed. Speech was somewhat monotone. She answered questions with brief responses. She did not say a lot. Her affect was a little blunted. Her mood was quiet. She did not appear to be significantly distressed. She responded appropriately to questions relating to follow up plans and referral to [facility]. She seemed very positive about that aspect of care. She voiced no thoughts of harm. There was no indication of thought disorder. She was oriented and alert. ASSESSMENT: I will continue the current diagnosis and treatment plan. As per the patient request, I will start her on a baby aspirin a day as well as Lipitor 20 mg a day. We will continue psychotropic medications the same. I discussed issues related to referral to [facility] for substance abuse treatment. We will anticipate a transfer on Friday. We will focus on stabilization and discharge planning. MMODL / IJN: [id number] /
[2020-12-21 17:25] LABS: Glucose,Whole Blood 198 mg/dL (75-99)
[2020-12-21] MEDS: MAGNESIUM HYDROXIDE 2,400 MG/10 ML CUP PO PRN (17:30)
[2020-12-21] MEDS: ZIPRASIDONE 60 MG CAP PO SCH (18:25)
[2020-12-21 19:41] LABS: Glucose,Whole Blood 321 mg/dL (75-99)
[2020-12-21] MEDS: MELATONIN 3 MG TABLET PO SCH (19:47)
[2020-12-21] MEDS: INSULIN DETEMIR (LEVEMIR) 100 UNIT/ML SYR SQ SCH (20:36)
[2020-12-22 07:52] LABS: Glucose,Whole Blood 193 mg/dL (75-99)
[2020-12-22] MEDS: ASPIRIN 81 MG PO SCH (08:00)
[2020-12-22] MEDS: GABAPENTIN 300 MG CAP PO SCH ×2 (08:00→20:44)
[2020-12-22] MEDS: INSULIN ASPART (NovoLOG) 100 UNIT/ML VIAL SQ SCH ×7 (08:00→19:58)
[2020-12-22] MEDS: DULoxetine HCL 60 MG CAPSULE.DR PO SCH (08:00)
[2020-12-22] MEDS: ATORVASTATIN 20 MG TAB PO SCH (08:00)
[2020-12-22] MEDS: NICOTINE 14MG/24HR PATCH TRANSDERM SCH (08:03)
[2020-12-22 12:52] LABS: Glucose,Whole Blood 278 mg/dL (75-99)
--- NOTE | 2020-12-22 13:16 | PN ---
PROGRESS NOTE DATE OF SERVICE: 12/22/2020. CHIEF COMPLAINT: The patient was admitted due to depression with suicidal thinking. She had thoughts of cutting herself or using a gun. She reports significant traumatic events. INTERVAL HISTORY: The patient has been doing fair. She had a quiet day yesterday. She tends to keep to herself though she does get out in the day area and will interact a little with others. She attended 2 groups in the afternoon. She tends to present with a reserved manner, though was managing in a group reasonably well. She slept 6 hours last night. Today she has been up. She comes out in the day area some. She continues to walk in a slow manner. She does not show a lot of emotional expression one way or another. She has a somewhat down look on her face. She did not have any specific complaints or concerns today. She is a focused on her admission to [facility] for substance abuse treatment coming up Friday. She did not voice any specific concerns. She tolerates the psychotropic medications. MENTAL STATUS: Patient sat without restlessness. Eye contact was fair. Psychomotor activity was slowed. Speech was monotone. She answered questions with brief responses. She did not say much. Her affect was blunted. Her mood reserved. She did not appear to be significantly distressed. There was no indication of thought disorder. She was oriented and alert. ASSESSMENT: I will continue the current diagnosis and treatment plan. I will continue psychotropic medications the same. At this point, we will continue to focus on helping her work on managing depression and focus on her substance use issues with anticipation of admission to [facility] for substance abuse treatment on Friday. MMODL / IJN: [id number] /
[2020-12-22] MEDS: DOCUSATE 100 MG CAP PO SCH ×2 (15:02→21:15)
[2020-12-22] MEDS: ACETAMINOPHEN TAB 325 MG TAB PO PRN (15:53)
[2020-12-22] MEDS: diphenhydrAMINE 50 MG CAP PO PRN ×2 (15:53→20:44)
[2020-12-22 17:42] LABS: Glucose,Whole Blood 235 mg/dL (75-99)
[2020-12-22] MEDS: ZIPRASIDONE 60 MG CAP PO SCH (18:16)
[2020-12-22 19:43] LABS: Glucose,Whole Blood 276 mg/dL (75-99)
[2020-12-22] MEDS: MELATONIN 3 MG TABLET PO SCH (20:44)
[2020-12-22] MEDS: INSULIN DETEMIR (LEVEMIR) 100 UNIT/ML SYR SQ SCH (20:46)
[2020-12-22] MEDS ORDERED: DOCUSATE 100 MG CAP PO SCH (21:00)
[2020-12-23 07:55] LABS: Glucose,Whole Blood 122 mg/dL (75-99)
[2020-12-23] MEDS: INSULIN ASPART (NovoLOG) 100 UNIT/ML VIAL SQ SCH ×7 (08:33→20:29)
[2020-12-23] MEDS: ASPIRIN 81 MG PO SCH (08:53)
[2020-12-23] MEDS: NICOTINE 14MG/24HR PATCH TRANSDERM SCH (08:53)
[2020-12-23] MEDS: DULoxetine HCL 60 MG CAPSULE.DR PO SCH (08:54)
[2020-12-23] MEDS: GABAPENTIN 300 MG CAP PO SCH ×2 (08:54→21:37)
[2020-12-23] MEDS: DOCUSATE 100 MG CAP PO SCH ×2 (08:54→21:37)
[2020-12-23] MEDS: ATORVASTATIN 20 MG TAB PO SCH (08:54)
[2020-12-23] MEDS: diphenhydrAMINE 50 MG CAP PO PRN (08:57)
[2020-12-23] MEDS: ASPIRIN-ACET-CAFF 250-250-65MG 1 EACH TAB PO PRN (09:25)
[2020-12-23 12:55] LABS: Glucose,Whole Blood 325 mg/dL (75-99)
--- NOTE | 2020-12-23 16:10 | P.PN ---
Progress Note - Text Progress Note Date: 12/23/20 Clinical Problems: Bipolar disorder current episode depressed, rule out with psychotic features, alcohol use disorder unspecified, tobacco use disorder Interim history: Reviewed the medical record and interviewed the patient. She is a 55-year-old female admitted to the psychiatric unit with complaints of depression and suicidal ideation. She gave a disjointed history about leaving her in [place] and traveling to [place] to visit with her elderly father. She was arrested when she attempted to cross the border into [place] without a contract driver's license. She alleged that she was incarcerated for 2 months and presented to the hospital after she was released from residential. While she was in residential her father . She reports and improvement in her mood since admission to the unit and reported no adverse reaction to her current psychotropic medications-Cymbalta 60 mg daily, Neurontin 300 mg twice a day and Geodon 60 mg at bedtime. She plans to be admitted to the [facility] for residential substance abuse treatment of her alcohol use problem. She has been attending therapeutic groups and activities. She slept 8 hours last night. Mental status exam: She presented as a disheveled appearing moderately obese 55-year-old female who was pleasant on approach. She had no distinction features are prominent physical abnormalities. She had a flat facial expression. She had psychomotor retardation but no abnormal involuntary movements. Her speech was spontaneous with decreased rate, volume and rhythm. Her affect was flat and unreactive. She denied current suicidal ideation or wishes. She denied feeling hopeless, helpless or worthless. Sheideas reference, paranoid ideation or delusions. Her thinking was concrete but her associations appeared goal directed. She denied hallucinations did not appear to responding to internal stimuli. Assessment: She appears moderately mentally ill much improved admission. Plan: Continue inpatient treatment. Safety precautions. Continue current psychotropic medications (described above). Encouraged continued participation in therapeutic groups and activities. Evaluate clinical status response to treatment daily basis.
[2020-12-23 17:41] LABS: Glucose,Whole Blood 281 mg/dL (75-99)
[2020-12-23 20:11] LABS: Glucose,Whole Blood 324 mg/dL (75-99)
[2020-12-23] MEDS: ZIPRASIDONE 60 MG CAP PO SCH (20:27)
[2020-12-23] MEDS: INSULIN DETEMIR (LEVEMIR) 100 UNIT/ML SYR SQ SCH (20:32)
[2020-12-23] MEDS: MELATONIN 3 MG TABLET PO SCH (21:37)
[2020-12-23] MEDS: MAGNESIUM HYDROXIDE 2,400 MG/10 ML CUP PO PRN (21:38)
[2020-12-24 07:52] LABS: Glucose,Whole Blood 121 mg/dL (75-99)
[2020-12-24] MEDS: INSULIN ASPART (NovoLOG) 100 UNIT/ML VIAL SQ SCH ×7 (07:52→22:05)
[2020-12-24] MEDS: NICOTINE 14MG/24HR PATCH TRANSDERM SCH (08:40)
[2020-12-24] MEDS: ASPIRIN 81 MG PO SCH (08:41)
[2020-12-24] MEDS: GABAPENTIN 300 MG CAP PO SCH ×2 (08:41→22:01)
[2020-12-24] MEDS: DOCUSATE 100 MG CAP PO SCH ×2 (08:41→22:01)
[2020-12-24] MEDS: ATORVASTATIN 20 MG TAB PO SCH (08:41)
[2020-12-24] MEDS: DULoxetine HCL 60 MG CAPSULE.DR PO SCH (08:41)
--- NOTE | 2020-12-24 12:05 | P.PN ---
Progress Note - Text Progress Note Date: 12/24/20 Clinical Problems: Bipolar disorder current episode depressed, rule out with psychotic features, alcohol use disorder unspecified, tobacco use disorder Interim history: I reviewed the medical record and interviewed the patient. She denied problems or concerns. She reaffirmed that her plan is to seek residential substance abuse treatment, a three-quarter house, and look for a job so that she could remain in [place]. I reviewed the [facility] [address] court docket. She was charged with receiving and concealing stolen property and driving with a suspended license. She denied that she is on probation or parole. She reports and improvement in her mood since admission to the unit and reported no adverse reaction to her current psychotropic medications. She has been attending therapeutic groups and activities. She slept 8 hours last night. Mental status exam: She presented as a disheveled appearing moderately obese 55-year-old female who was pleasant on approach. She had no distinction features are prominent physical abnormalities. She had a flat facial expression. She had psychomotor retardation but no abnormal involuntary movements. Her speech was spontaneous with decreased rate, volume and rhythm. Her affect was flat and unreactive. She denied current suicidal ideation or wishes. She denied feeling hopeless, helpless or worthless. Did not express ideas of reference, paranoid ideation or delusions. Her thinking was concrete but her associations appeared goal directed. She denied hallucinations did not appear to responding to internal stimuli. Assessment: She appears moderately mentally ill much improved admission. Plan: Continue inpatient treatment. Safety precautions. Continue current psychotropic medications - Cymbalta 60 mg daily, Neurontin 3 mg twice a day, melatonin 6 mg at bedtime and Geodon 60 mg at bedtime. Encouraged continued participation in therapeutic groups and activities. Evaluate clinical status response to treatment daily basis.
[2020-12-24 12:33] LABS: Glucose,Whole Blood 232 mg/dL (75-99)
[2020-12-24 18:08] LABS: Glucose,Whole Blood 267 mg/dL (75-99)
[2020-12-24] MEDS: ACETAMINOPHEN TAB 325 MG TAB PO PRN (18:24)
[2020-12-24] MEDS: MAGNESIUM HYDROXIDE 2,400 MG/10 ML CUP PO PRN (19:03)
[2020-12-24] MEDS: ASPIRIN-ACET-CAFF 250-250-65MG 1 EACH TAB PO PRN (19:03)
[2020-12-24] MEDS: ZIPRASIDONE 60 MG CAP PO SCH (19:05)
[2020-12-24 20:01] LABS: Glucose,Whole Blood 316 mg/dL (75-99)
[2020-12-24] MEDS: diphenhydrAMINE 50 MG CAP PO PRN (22:01)
[2020-12-24] MEDS: MELATONIN 3 MG TABLET PO SCH (22:01)
[2020-12-24] MEDS: INSULIN DETEMIR (LEVEMIR) 100 UNIT/ML SYR SQ SCH (22:03)
[2020-12-25 07:54] LABS: Glucose,Whole Blood 121 mg/dL (75-99)
[2020-12-25] MEDS: INSULIN ASPART (NovoLOG) 100 UNIT/ML VIAL SQ SCH ×7 (08:20→21:20)
[2020-12-25] MEDS: GABAPENTIN 300 MG CAP PO SCH ×2 (08:22→21:17)
[2020-12-25] MEDS: DULoxetine HCL 60 MG CAPSULE.DR PO SCH (08:23)
[2020-12-25] MEDS: NICOTINE 14MG/24HR PATCH TRANSDERM SCH (08:23)
[2020-12-25] MEDS: ATORVASTATIN 20 MG TAB PO SCH (08:23)
[2020-12-25] MEDS: DOCUSATE 100 MG CAP PO SCH ×2 (08:23→21:16)
[2020-12-25] MEDS: ASPIRIN 81 MG PO SCH (08:23)
--- NOTE | 2020-12-25 09:15 | P.PN ---
Progress Note - Text Progress Note Date: 12/25/20 Interval History: Patient was seen wandering the hallways and was directable and agreeable to sp amber with video game script writer in the office. Patient appeared to have mild improvement in her hygiene and grooming today. She appeared to be more cooperative today with video game script writer. She claims that her mood and anxiety have been gradually improving since being on the unit. She states that she had a fair weekend and did not any complaints overnight. She states that she was able to sleep approximately 7 hours last night. She claims that she has an appointment with [facility] tomorrow for an intake for inpatient rehab and is excited to go. She states that she has been going to some groups. She claims to have fair appetite and energy level today. At this time patient denies any suicidal or homical ideations, intent or plan. Patient denies any auditory, visual hallucinations and denies any paranoia or delusions. Patient denies any side effects from the medications and has been compliant with meds. Mental Status Exam: General Appearance: Patient appears to be stated age is alert, directable, and attempts to be cooperative. Behavior: Patient is calmly seated without any agitated behavior. Speech: Patient's speech is fluent and nonpressured. Mood/Affect: Mood is improving mildly, affect is congruent and constricted. Suicidality/Homicidality: Patient denies having any suicidal or homicidal ideation intent or plan. Perceptions: Patient denies any visual hallucinations and denies any auditory hallucinations Though content/process: [place], goal oriented. Logical. Not endorsing any delusions. Memory and concentration: AOX3, grossly intact for the purposes of this session Judgment and insight: Improving mildly Assessment Bipolar disorder with psychotic features Anxiety disorder unspecified Nicotine dependence Plan: -Patient continues to meet criteria for inpatient psychiatric admission for symptom stabilization and safety. Patient has signed adult voluntary form and medication consent and was placed in patient's chart. -Medications: Continue with Geodon 60 mg daily at bedtime for psychosis/mood stabilization, Cymbalta 60 mg daily for mood/anxiety, melatonin 6 mg daily at bedtime for insomnia. -When necessary Ativan and Haldol for agitation/aggression. -NRT - nicotine patch -SW on board for discharge planning. Encouraged the patient to participate in milieu. Patient apparently has an intake appointment at [facility] inpatient rehab for tomorrow. Likely discharge tomorrow morning.
[2020-12-25 12:49] LABS: Glucose,Whole Blood 227 mg/dL (75-99)
[2020-12-25] MEDS: ASPIRIN-ACET-CAFF 250-250-65MG 1 EACH TAB PO PRN (13:51)
[2020-12-25 17:53] LABS: Glucose,Whole Blood 179 mg/dL (75-99)
[2020-12-25] MEDS: ZIPRASIDONE 60 MG CAP PO SCH (18:09)
[2020-12-25] MEDS: ACETAMINOPHEN TAB 325 MG TAB PO PRN (19:53)
[2020-12-25 19:55] LABS: Glucose,Whole Blood 213 mg/dL (75-99)
[2020-12-25] MEDS: MELATONIN 3 MG TABLET PO SCH (21:17)
[2020-12-25] MEDS: MAGNESIUM HYDROXIDE 2,400 MG/10 ML CUP PO PRN (21:17)
[2020-12-25] MEDS: diphenhydrAMINE 50 MG CAP PO PRN (21:17)
[2020-12-25] MEDS: INSULIN DETEMIR (LEVEMIR) 100 UNIT/ML SYR SQ SCH (21:21)
[2020-12-26] MEDS: ASPIRIN-ACET-CAFF 250-250-65MG 1 EACH TAB PO PRN ×4 (07:57→21:46)
[2020-12-26 08:00] LABS: Glucose,Whole Blood 69 mg/dL (75-99)
[2020-12-26 08:12] LABS: Glucose,Whole Blood 91 mg/dL (75-99)
[2020-12-26] MEDS: INSULIN ASPART (NovoLOG) 100 UNIT/ML VIAL SQ SCH ×7 (08:47→20:17)
[2020-12-26] MEDS: DULoxetine HCL 60 MG CAPSULE.DR PO SCH (09:39)
[2020-12-26] MEDS: DOCUSATE 100 MG CAP PO SCH ×2 (09:39→20:13)
[2020-12-26] MEDS: GABAPENTIN 300 MG CAP PO SCH ×2 (09:39→20:15)
[2020-12-26] MEDS: ATORVASTATIN 20 MG TAB PO SCH (09:39)
[2020-12-26] MEDS: ASPIRIN 81 MG PO SCH (09:40)
[2020-12-26] MEDS: NICOTINE 14MG/24HR PATCH TRANSDERM SCH (09:40)
--- NOTE | 2020-12-26 09:56 | P.PN ---
Progress Note - Text Progress Note Date: 12/26/20 Interval History: Patient was seen wandering the hallways and was directable and agreeable to sp eak with newswriter in the office. Patient appeared to have mild improvement in her hygiene and grooming today. She appeared to be more cooperative today with newswriter today. She claims that she is feeling frustrated today as she claims that her Medicaid is not able to pay for her medications and that she missed her ride to rehab this morning. She states that she does not know where she is going to go at this time however still wants to go to rehab. She claims that her mood has been "fine" and is denying any depression today or anxiety. She did not offer any overnight complaints. She states that she was able to sleep approximately 7 hours last night. She states that she has been going to some groups. She claims to have fair appetite and energy level today. At this time patient denies any suicidal or homical ideations, intent or plan. Patient denies any auditory, visual hallucinations and denies any paranoia or delusions. Patient denies any side effects from the medications and has been compliant with meds. Mental Status Exam: General Appearance: Patient appears to be stated age is alert, directable, and attempts to be cooperative. Hygiene improving mildly Behavior: Patient is calmly seated without any agitated behavior. Speech: Patient's speech is fluent and nonpressured. Mood/Affect: Mood is improving mildly, affect is congruent and constricted. Suicidality/Homicidality: Patient denies having any suicidal or homicidal ideation intent or plan. Perceptions: Patient denies any visual hallucinations and denies any auditory hallucinations Though content/process: [place], goal oriented. Logical. Not endorsing any delusions. Memory and concentration: AOX3, grossly intact for the purposes of this session Judgment and insight: Improving mildly Assessment Bipolar disorder with psychotic features Anxiety disorder unspecified Nicotine dependence Plan: -Patient continues to meet criteria for inpatient psychiatric admission for symptom stabilization and safety. Patient has signed adult voluntary form and medication consent and was placed in patient's chart. -Medications: Continue with Geodon 60 mg daily at bedtime for psychosis/mood stabilization, Cymbalta 60 mg daily for mood/anxiety, melatonin 6 mg daily at bedtime for insomnia. -When necessary Ativan and Haldol for agitation/aggression. -NRT - nicotine patch -SW on board for discharge planning. Encouraged the patient to participate in milieu. Patient apparently has an intake appointment at [facility] inpatient rehab and was supposed to be discharged today however patient does not have her medications as they are not paid for. Will attempt find other sources for funding of medications for tomorrow and plan for d/c to rehab tomorrow.
[2020-12-26 12:45] LABS: Glucose,Whole Blood 255 mg/dL (75-99)
[2020-12-26] MEDS ORDERED: hydrOXYzine pamoate 25 MG CAP PO PRN (12:59)
[2020-12-26 13:04] VITALS: BMI 31.5
[2020-12-26] MEDS: ACETAMINOPHEN TAB 325 MG TAB PO PRN (15:02)
[2020-12-26] MEDS ORDERED: LORazepam 1 MG TAB PO PRN (16:41)
[2020-12-26] MEDS: MAGNESIUM HYDROXIDE 2,400 MG/10 ML CUP PO PRN (17:52)
[2020-12-26 18:00] LABS: Glucose,Whole Blood 136 mg/dL (75-99)
[2020-12-26] MEDS: ZIPRASIDONE 60 MG CAP PO SCH (19:01)
[2020-12-26 20:05] LABS: Glucose,Whole Blood 305 mg/dL (75-99)
[2020-12-26] MEDS: MELATONIN 3 MG TABLET PO SCH (20:14)
[2020-12-26] MEDS: diphenhydrAMINE 50 MG CAP PO PRN (20:15)
[2020-12-26] MEDS: INSULIN DETEMIR (LEVEMIR) 100 UNIT/ML SYR SQ SCH (20:16)
[2020-12-27 06:38] VITALS: RESP 16
[2020-12-27 07:58] LABS: Glucose,Whole Blood 216 mg/dL (75-99)
[2020-12-27] MEDS: INSULIN ASPART (NovoLOG) 100 UNIT/ML VIAL SQ SCH ×7 (08:10→20:09)
[2020-12-27] MEDS: NICOTINE 14MG/24HR PATCH TRANSDERM SCH (08:55)
[2020-12-27] MEDS: ASPIRIN 81 MG PO SCH (08:56)
[2020-12-27] MEDS: ATORVASTATIN 20 MG TAB PO SCH (08:56)
[2020-12-27] MEDS: GABAPENTIN 300 MG CAP PO SCH ×2 (08:56→20:10)
[2020-12-27] MEDS: DOCUSATE 100 MG CAP PO SCH ×2 (08:56→20:52)
[2020-12-27] MEDS: DULoxetine HCL 60 MG CAPSULE.DR PO SCH (08:56)
[2020-12-27] MEDS: ASPIRIN-ACET-CAFF 250-250-65MG 1 EACH TAB PO PRN (08:57)
[2020-12-27] MEDS ORDERED: DULoxetine HCL 30 MG CAPSULE.DR PO ONE (10:32)
[2020-12-27] MEDS: ZIPRASIDONE 40 MG CAP PO SCH ×2 (11:11→20:10)
--- NOTE | 2020-12-27 11:35 | P.PN ---
Progress Note - Text Progress Note Date: 12/27/20 Interval History: Patient was seen wandering the hallways and was directable and agreeable to sp eak with promotion writer in the office. Patient appeared to have mild improvement in her hygiene and grooming today. She appeared to be more cooperative today with promotion writer today. She claims that yesterday was a "rough day for me" and states that she is dealing with a headache and also anxiety. She spoke about having suicidal ideations yesterday however states that she wants to get back together with her eventually and on a farm and adopt children. She states that today her anxiety has been improving. She was fairly manipulative at times when speaking about her Ativan and other controlled medications. She claims that she is still frustrated being here on the hospital and also not figuring out how she can have her medications. She states that she still wants to go to rehab. She claims that her mood has been "ok" and is denying any depression today or anxiety. She did not offer any overnight complaints. She states that she was able to sleep approximately 7 hours last night. She states that she has been going to some groups. At this time patient denies any suicidal or homical ideations, intent or plan. Patient denies any auditory, visual hallucinations and denies any paranoia or delusions. Patient denies any side effects from the medications and has been compliant with meds. Mental Status Exam: General Appearance: Patient appears to be stated age is alert, directable, and attempts to be cooperative. Hygiene improving mildly Behavior: Patient is calmly seated without any agitated behavior. Manipulative at times. Speech: Patient's speech is fluent and nonpressured. Mood/Affect: Mood is improving mildly, affect is congruent and constricted. Suicidality/Homicidality: Patient denies having any suicidal or homicidal ideation intent or plan. Perceptions: Patient denies any visual hallucinations and denies any auditory hallucinations Though content/process: [place], goal oriented. Logical. Not endorsing any delusions. Memory and concentration: AOX3, grossly intact for the purposes of this session Judgment and insight: Improving mildly Assessment Bipolar disorder with psychotic features Anxiety disorder unspecified Nicotine dependence Plan: -Patient continues to meet criteria for inpatient psychiatric admission for symptom stabilization and safety. Patient has signed adult voluntary form and medication consent and was placed in patient's chart. -Medications: Increased Geodon 40 mg bid at bedtime for psychosis/mood stabilization to help control the voices during the day, Cymbalta increased to 90 mg daily for mood/anxiety, melatonin 6 mg daily at bedtime for insomnia. -When necessary Ativan and Haldol for agitation/aggression. -NRT - nicotine patch -SW on board for discharge planning. Encouraged the patient to participate in milieu. Patient has been accepted at [facility] for inpt rehab. SW was able to find source for funding of patients medications. Will prepare for likely d/c tomorrow to rehab if patient is able to secure a ride.
[2020-12-27 12:43] LABS: Glucose,Whole Blood 223 mg/dL (75-99)
[2020-12-27 17:45] LABS: Glucose,Whole Blood 113 mg/dL (75-99)
[2020-12-27] MEDS: INSULIN DETEMIR (LEVEMIR) 100 UNIT/ML SYR SQ SCH (20:04)
[2020-12-27 20:08] LABS: Glucose,Whole Blood 233 mg/dL (75-99)
[2020-12-27] MEDS: MELATONIN 3 MG TABLET PO SCH (20:10)
[2020-12-28 06:36] VITALS: TEMP 97.9
[2020-12-28 07:51] LABS: Glucose,Whole Blood 94 mg/dL (75-99)
[2020-12-28] MEDS: INSULIN ASPART (NovoLOG) 100 UNIT/ML VIAL SQ SCH ×7 (07:53→20:58)
[2020-12-28] MEDS: ATORVASTATIN 20 MG TAB PO SCH (09:03)
[2020-12-28] MEDS: NICOTINE 14MG/24HR PATCH TRANSDERM SCH (09:03)
[2020-12-28] MEDS: ASPIRIN 81 MG PO SCH (09:03)
[2020-12-28] MEDS: GABAPENTIN 300 MG CAP PO SCH ×2 (09:04→21:03)
[2020-12-28] MEDS: ZIPRASIDONE 40 MG CAP PO SCH ×2 (09:04→21:03)
[2020-12-28] MEDS: DULoxetine HCL 30 MG CAPSULE.DR PO SCH (09:04)
[2020-12-28] MEDS: DOCUSATE 100 MG CAP PO SCH ×2 (09:04→21:03)
--- NOTE | 2020-12-28 11:11 | P.PN ---
Progress Note - Text Progress Note Date: 12/28/20 Interval History: Patient was seen wandering the hallways and was directable and agreeable to sp eak with sports writer in the office. Patient appeared to have mild improvement in her hygiene and grooming today. She appeared to be more cooperative today with sports writer today. She continues to state that she is feeling "overwhelmed" with the change in her plans for discharge. She had significant complaints about several staff members and the process for discharge. She remains future oriented and continues to state that she wants to go to rehab to stay sober. She states that today her anxiety has been improving since being on the unit. She continues to be manipulative at times with regards to her symptoms and claims that "I hear voices when I get stressed out and things don't go my way". She claims that her mood has been "ok" and is denying any depression today or anxiety. She did not offer any overnight complaints. She states that she was able to sleep approximately 8 hours last night. She states that she has been going to some groups. At this time patient denies any suicidal or homical ideations, intent or plan. Patient denies any auditory, visual hallucinations and denies any paranoia or delusions. Patient denies any side effects from the medications and has been compliant with meds. Mental Status Exam: General Appearance: Patient appears to be stated age is alert, directable, and attempts to be cooperative. Hygiene improving mildly Behavior: Patient is calmly seated without any agitated behavior. Manipulative at times. Speech: Patient's speech is fluent and nonpressured. Mood/Affect: Mood is improving mildly, affect is congruent and constricted. Suicidality/Homicidality: Patient denies having any suicidal or homicidal ideation intent or plan. Perceptions: Patient denies any visual hallucinations and denies any auditory hallucinations Though content/process: [place], goal oriented. Logical. Not endorsing any delusions. Memory and concentration: AOX3, grossly intact for the purposes of this session Judgment and insight: Improving mildly Assessment Bipolar disorder with psychotic features Anxiety disorder unspecified Nicotine dependence Plan: -Patient continues to meet criteria for inpatient psychiatric admission for symptom stabilization and safety. Patient has signed adult voluntary form and medication consent and was placed in patient's chart. -Medications: Continue with Geodon 40 mg bid at bedtime for psychosis/mood stabilization, Cymbalta 90 mg daily for mood/anxiety, melatonin 6 mg daily at bedtime for insomnia. -When necessary Ativan and Haldol for agitation/aggression. -NRT - nicotine patch -SW on board for discharge planning. Encouraged the patient to participate in milieu. Patient has been accepted at [facility] for inpt rehab. SW was able to find source for funding of patients medications. Will prepare for likely d/c tomorrow [facility] rehab vs penitentiary if patient is able to arrange a ride. [facility] will be doing an intake on the unit tomorrow prior to d/c.
[2020-12-28 13:00] LABS: Glucose,Whole Blood 216 mg/dL (75-99)
[2020-12-28 17:46] LABS: Glucose,Whole Blood 162 mg/dL (75-99)
[2020-12-28] MEDS: MAGNESIUM HYDROXIDE 2,400 MG/10 ML CUP PO PRN (18:44)
[2020-12-28 19:58] LABS: Glucose,Whole Blood 214 mg/dL (75-99)
[2020-12-28] MEDS: INSULIN DETEMIR (LEVEMIR) 100 UNIT/ML SYR SQ SCH (21:00)
[2020-12-28] MEDS: MELATONIN 3 MG TABLET PO SCH (21:03)
[2020-12-29 06:21] VITALS: BP 118/56; PULSE 80
[2020-12-29 07:44] LABS: Glucose,Whole Blood 98 mg/dL (75-99)
[2020-12-29] MEDS: INSULIN ASPART (NovoLOG) 100 UNIT/ML VIAL SQ SCH ×6 (07:51→13:40)
[2020-12-29] MEDS: DOCUSATE 100 MG CAP PO SCH (08:54)
[2020-12-29] MEDS: NICOTINE 14MG/24HR PATCH TRANSDERM SCH (08:54)
[2020-12-29] MEDS: ATORVASTATIN 20 MG TAB PO SCH (08:54)
[2020-12-29] MEDS: GABAPENTIN 300 MG CAP PO SCH (08:54)
[2020-12-29] MEDS: ZIPRASIDONE 40 MG CAP PO SCH (08:54)
[2020-12-29] MEDS: ASPIRIN 81 MG PO SCH (08:55)
[2020-12-29] MEDS: DULoxetine HCL 30 MG CAPSULE.DR PO SCH (08:55)
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
[2020-12-29 12:49] LABS: Glucose,Whole Blood 218 mg/dL (75-99)
== END 2020-12-29 14:56 | disposition home or self-care (01) | DRG 885 ==
LOC: EC 16:19 → 3MHU 12-15 10:31
PROVIDERS: ADMIT Psychiatry & Neurology Psychiatry; ATTEND Psychiatry & Neurology Psychiatry
DX: F31.5 Bipolar disorder, current episode depressed, severe, with psychotic features (principal); F10.239 Alcohol dependence with withdrawal, unspecified; R45.851 Suicidal ideations; F17.210 Nicotine dependence, cigarettes, uncomplicated; E11.40 Type 2 diabetes mellitus with diabetic neuropathy, unspecified; E11.65 Type 2 diabetes mellitus with hyperglycemia; F43.22 Adjustment disorder with anxiety; F41.9 Anxiety disorder, unspecified; G43.909 Migraine, unspecified, not intractable, without status migrainosus; G47.00 Insomnia, unspecified; Z59.0 Homelessness; Z79.4 Long term (current) use of insulin; Z79.82 Long term (current) use of aspirin; Z79.899 Other long term (current) drug therapy; Z91.410 Personal history of adult physical and sexual abuse; Z56.0 Unemployment, unspecified; Z20.822 Contact with and (suspected) exposure to COVID-19; Z88.0 Allergy status to penicillin
CPT/HCPCS: 36415; 80053; 80061; 80306; 81001; 81025; 82075; 83036; 84443; 85025; 87636; 99285